=== PATIENT | male | born 1975 | race African-American/Black ===

== ENCOUNTER 2017-06-18 08:31 | Emergency (ER) | payer SELFPAY ==
[~2017-06-18] VITALS: Ht 180.3 cm; Wt 110.0 kg
[2017-06-18 08:37] VITALS: BP 142/91
[2017-06-18] MEDS ORDERED: TRAMADOL 50MG TABLET PO ONE (10:15)
== END 2017-06-18 10:35 | disposition home or self-care (01) ==
LOC: ER 09:01
DX: K08.9 Disorder of teeth and supporting structures, unspecified (principal); F12.10 Cannabis abuse, uncomplicated; Z88.2 Allergy status to sulfonamides
CPT/HCPCS: 99283

== ENCOUNTER 2021-06-30 11:20 | Emergency (ER) | payer MEDICAID ==
[~2021-06-30] VITALS: Ht 180.3 cm; Wt 116.0 kg
[2021-06-30 11:46] VITALS: BP 144/83
[2021-06-30] MEDS ORDERED: CEFTRIAXONE SODIUM 500 MG/VIAL IM ONE (12:00)
[2021-06-30] MEDS ORDERED: DOXY100C5 MT (12:37)
[2021-07-02 04:07] LABS: NEISSERIA GONORRHOEAE NAA Positive (Negative)
== END 2021-06-30 13:07 | disposition home or self-care (01) ==
LOC: ER 11:20
DX: A54.09 Other gonococcal infection of lower genitourinary tract (principal)
CPT/HCPCS: 87491; 87591; 96372; 99283; J0696

== ENCOUNTER 2023-02-03 15:08 | Inpatient (IN) | payer MEDICAID ==
[~2023-02-03] VITALS: Ht 182.9 cm; Wt 106.6 kg
[~2023-02-03 15:08] MED LIST: DOXY100C5 MT
[2023-02-03] MEDS ORDERED: SODIUM CHLORIDE 0.9% 1,000 ML IV ONE (15:30)
[2023-02-03 16:09] LABS: BASOPHILS % 0.7 % (0.0-2.0); DIFFERENTIAL COMMENT 0; EOSINOPHILS % 2.5 % (0.0-5.0); HEMATOCRIT. 39.1 % (42.0-52.0); HEMOGLOBIN. 13.1 g/dL (14.0-18.0); LYMPHOCYTES % 23.4 % (20.0-50.0); MEAN CORPUSCULAR HEMOGLOBIN 33.6 pg (28.0-32.0); MEAN CORPUSCULAR HGB CONC 33.6 g/dL (31.0-37.0); MEAN CORPUSCULAR VOLUME 100.2 fL (80.0-94.0); MEAN PLATELET VOLUME 7.3 fl (7.4-10.4); MONOCYTES % 7.9 % (2.0-8.0); NEUTROPHILS % 65.5 % (40.0-76.0); PLATELET 421 x1000/uL (130-400); RED CELL DISTRIBUTION WIDTH 12.8 % (11.6-14.6); WHITE BLOOD COUNT 11.6 x1000/uL (4.5-11.0)
[2023-02-03 16:13] LABS: CHLORIDE 104 mEq/L (98-107); INDEX HEMOLYSI 1 (1-3); INDEX ICTERIC 1 (1-4); INDEX LIPEMIC 1 (1-3); POTASSIUM 3.1 mEq/L (3.5-5.1); SODIUM 136 mEq/L (136-145)
[2023-02-03 16:20] LABS: ACETAMINOPHEN <2 ug/mL ug/mL (10-30); ALANINE AMINOTRANSFERASE 93 IU/L (13-61); ALBUMIN 3.7 g/dL (3.4-5.0); ASPARTATE AMINOTRANSFERASE 104 IU/L (15-37); BILIRUBIN TOTAL 0.3 mg/dL (0.1-1.0); CALCIUM 7.8 mg/dL (8.5-10.1); CARBON DIOXIDE 29 mEq/L (21-32); ETHANOL BLOOD < 10 mg/dL (-10); GLUCOSE 233 mg/dL (70-105); PROTEIN TOTAL 7.5 g/dL (6.0-8.3); UREA NITROGEN BLOOD 14 mg/dL (7-21)
[2023-02-03] MEDS ORDERED: KCL 20MEQ/100ML PREMIX 100 ML IV ONE (17:30)
[2023-02-03] MEDS ORDERED: NALOXONE HCL 1 MG/ML 2ML VIAL IV ONE ×3 (17:30→23:45)
[2023-02-03 17:46] LABS: TROPONIN I HIGH SENSITIVITY 17 ng/L (<78)
[2023-02-03 18:04] LABS: CLARITY URINE CLOUDY (CLEAR); COLOR URINE YELLOW (YELLOW); GLUCOSE URINE TRACE (NEGATIVE); KETONES URINE NEGATIVE (NEGATIVE); LEUKOCYTE ESTERASE URINE NEGATIVE (NEGATIVE); NITRITE URINE NEGATIVE (NEGATIVE); OCCULT BLOOD URINE TRACE (NEGATIVE); PROTEIN URINE 3+ (NEGATIVE)
[2023-02-03 18:18] LABS: *AMPHETAMINES SCREEN URINE PRESUMTIVE POSITIVE (NEGATIVE); *BARBITURATES SCREEN URINE NEGATIVE (NEGATIVE); *BENZODIAZEPINES SCREEN URINE NEGATIVE (NEGATIVE); *COCAINE SCREEN URINE NEGATIVE (NEGATIVE); CANNABINOID URINE SCREEN PRESUMTIVE POSITIVE (NEGATIVE); ECSTASY MDMA SCREEN URINE CONF.TEST INDICATED (NEGATIVE); METHADONE URINE SCREEN NEGATIVE (NEGATIVE); OPIATES URINE SCREEN NEGATIVE (NEGATIVE); PHENCYCLIDINE URINE SCREEN NEGATIVE (NEGATIVE)
[2023-02-03 18:21] LABS: BACTERIA URINE 2+; SQUAMOUS EPITHELIAL CELL URINE FEW /lpf (RARE/1+); WBC URINE 0-2 /hpf (0-2)
[2023-02-03 18:26] LABS: INDEX HEMOLYSI 2 (1-3)
[2023-02-03 18:28] LABS: AMMONIA 49 uMol/L (<32)
[2023-02-03 18:30] VITALS: O2SAT 91
[2023-02-03] MEDS ORDERED: METRONIDAZOLE 500 MG PREMIX 100 ML IV ONE (20:15)
[2023-02-03] MEDS ORDERED: CEFTRIAXONE 1GM PREMIX 50 ML IV ONE (20:15)
[2023-02-03] MEDS ORDERED: AZITHROMYCIN 500MG/250ML 250 ML IV ONE (20:15)
[2023-02-03] MEDS ORDERED: LACTULOSE 20G/30ML UDC PO ONE (20:15)
[2023-02-03] MEDS ORDERED: SODIUM CHLORIDE 0.9% 1000ML BAG (SEPSIS BOLUS) IV ONE (20:15)
[2023-02-03] MEDS ORDERED: NALOXONE HCL 1 MG/ML 2ML VIAL ONE (23:36)
[2023-02-04] VITALS (14 sets, daily range): BP systolic 111–148; BP diastolic 59–96; PULSE 72–93; RESP 5–16; TEMP 97.4–98.4
[2023-02-04] MEDS: SODIUM CHLORIDE 0.9% 1,000 ML IV SCH ×2 (06:32→23:13)
[2023-02-04] MEDS: ENOXAPARIN 30MG/0.3ML SYR SUBCUT SCH ×2 (09:00→20:27)
[2023-02-04] MEDS ORDERED: ENOXAPARIN 40MG/0.4ML SYR SUBCUT SCH (09:00)
[2023-02-04] MEDS ORDERED: POTASSIUM CHLORIDE 20MEQ/PACKET PO NR (11:15)
[2023-02-04] MEDS ORDERED: LORAZEPAM 2MG/ML CPJ IV PRN (11:15)
[2023-02-04] MEDS ORDERED: LORAZEPAM 2MG/ML CPJ IM SCH (11:45)
[2023-02-04 18:21] LABS: BASOPHILS % 0.3 % (0.0-2.0); DIFFERENTIAL COMMENT 0; EOSINOPHILS % 0.1 % (0.0-5.0); HEMATOCRIT. 40.5 % (42.0-52.0); LYMPHOCYTES % 16.5 % (20.0-50.0); MEAN CORPUSCULAR HEMOGLOBIN 33.2 pg (28.0-32.0); MEAN CORPUSCULAR HGB CONC 32.1 g/dL (31.0-37.0); MEAN CORPUSCULAR VOLUME 103.2 fL (80.0-94.0); MEAN PLATELET VOLUME 7.4 fl (7.4-10.4); MONOCYTES % 9.8 % (2.0-8.0); NEUTROPHILS % 73.3 % (40.0-76.0); PLATELET 408 x1000/uL (130-400); RED BLOOD CELL COUNT 3.92 mill/uL (4.7-6.1)
[2023-02-04 18:36] LABS: CHLORIDE 106 mEq/L (98-107); INDEX HEMOLYSI 1 (1-3); INDEX ICTERIC 1 (1-4); INDEX LIPEMIC 1 (1-3); POTASSIUM 4.1 mEq/L (3.5-5.1); SODIUM 139 mEq/L (136-145)
[2023-02-04 18:41] LABS: CALCIUM 8.2 mg/dL (8.5-10.1); CARBON DIOXIDE 32 mEq/L (21-32); CREATININE 0.9 mg/dL (0.6-1.3); GLUCOSE 81 mg/dL (70-105); UREA NITROGEN BLOOD 10 mg/dL (7-21)
[2023-02-04] MEDS ORDERED: CEFTRIAXONE 1GM PREMIX 50 ML IV ONE (22:30)
[2023-02-04] MEDS ORDERED: CEFTRIAXONE 1,000 MG in DEXTROSE 5% WATER 50 ML IV NR (23:30)
[2023-02-05] VITALS (9 sets, daily range): BP systolic 124–165; BP diastolic 62–98; PULSE 69–88; RESP 7–20; TEMP 97.5–99.7
[2023-02-05 06:47] LABS: BASOPHILS % 0.4 % (0.0-2.0); DIFFERENTIAL COMMENT 0; HEMATOCRIT. 34.5 % (42.0-52.0); HEMOGLOBIN. 11.7 g/dL (14.0-18.0); LYMPHOCYTES % 18.6 % (20.0-50.0); MEAN CORPUSCULAR HEMOGLOBIN 34.2 pg (28.0-32.0); MEAN CORPUSCULAR HGB CONC 33.8 g/dL (31.0-37.0); MEAN PLATELET VOLUME 7.5 fl (7.4-10.4); MONOCYTES % 11.7 % (2.0-8.0); NEUTROPHILS % 67.3 % (40.0-76.0); PLATELET 347 x1000/uL (130-400); RED BLOOD CELL COUNT 3.42 mill/uL (4.7-6.1); RED CELL DISTRIBUTION WIDTH 12.8 % (11.6-14.6); WHITE BLOOD COUNT 6.7 x1000/uL (4.5-11.0)
[2023-02-05 07:45] LABS: CALCIUM 7.8 mg/dL (8.5-10.1); CHLORIDE 105 mEq/L (98-107); INDEX HEMOLYSI 1 (1-3); INDEX ICTERIC 1 (1-4); INDEX LIPEMIC 1 (1-3); POTASSIUM 3.9 mEq/L (3.5-5.1); SODIUM 136 mEq/L (136-145)
[2023-02-05 07:50] LABS: CARBON DIOXIDE 26 mEq/L (21-32); CREATININE 0.8 mg/dL (0.6-1.3); GLUCOSE 82 mg/dL (70-105); UREA NITROGEN BLOOD 8 mg/dL (7-21)
[2023-02-05] MEDS ORDERED: LIDOCAINE HCL 1% 10 MG/ML 10ML VIAL ONE (08:27)
[2023-02-05] MEDS: SODIUM CHLORIDE 0.9% 1,000 ML IV SCH ×2 (10:22→22:36)
[2023-02-05] MEDS: ENOXAPARIN 30MG/0.3ML SYR SUBCUT SCH ×2 (10:22→20:01)
[2023-02-05] MEDS: CEFEPIME 1,000 MG in DEXTROSE 5% WATER 50 ML IV SCH ×2 (15:50→23:14)
[2023-02-05] MEDS ORDERED: LEVO750T68 MT (15:52)
[2023-02-06] VITALS (10 sets, daily range): BP systolic 121–152; BP diastolic 75–99; PULSE 62–82; RESP 10–19; TEMP 97–99
[2023-02-06] MEDS: SODIUM CHLORIDE 0.9% 1,000 ML IV SCH (11:50)
[2023-02-06] MEDS: CEFEPIME 1,000 MG in DEXTROSE 5% WATER 50 ML IV SCH ×2 (12:52→20:44)
[2023-02-06] MEDS: ENOXAPARIN 30MG/0.3ML SYR SUBCUT SCH ×2 (12:53→20:44)
[2023-02-07] VITALS: BP 143/83; PULSE 64; RESP 16; TEMP 98.2
[2023-02-07] MEDS: SODIUM CHLORIDE 0.9% 1,000 ML IV SCH (00:43)
[2023-02-07] MEDS: ENOXAPARIN 30MG/0.3ML SYR SUBCUT SCH (09:00)
== END 2023-02-07 11:30 | disposition left against medical advice (07) | DRG 52 ==
LOC: ER 15:14 → 5EST 20:14 → EDBEDREQ 20:22 → ER 02-04 02:16 → 6WST 02-06 21:47 → 5EST 02-07 08:45
PROVIDERS: ADMIT Internal Medicine; ATTEND Internal Medicine
PROC: 02HV33Z Insertion of Infusion Device into Superior Vena Cava, Percutaneous Approach (ICD-10-PCS; principal; 2023-02-05)
PROC: B5181ZA Fluoroscopy of Superior Vena Cava using Low Osmolar Contrast, Guidance (ICD-10-PCS; 2023-02-05)
PROC: B548ZZA Ultrasonography of Superior Vena Cava, Guidance (ICD-10-PCS; 2023-02-05)
DX: G92.9 Unspecified toxic encephalopathy (principal); J68.0 Bronchitis and pneumonitis due to chemicals, gases, fumes and vapors; E87.6 Hypokalemia; Z20.822 Contact with and (suspected) exposure to COVID-19; Z53.29 Procedure and treatment not carried out because of patient's decision for other reasons; F32.A Depression, unspecified; F19.10 Other psychoactive substance abuse, uncomplicated; Z81.8 Family history of other mental and behavioral disorders; Z88.2 Allergy status to sulfonamides
CPT/HCPCS: 36415; 36573; 71045; 80048; 80053; 80305; 80307; 80320; 80329; 81003; 82140; 83605; 84484; 85025; 87426; 93005; 97161; 99291; C1725; C9803; J0456; J0692; J0696; J1650; J2060; J2310; J3480; J3490; J7030; J7060; G0480